=== PATIENT | male | born 1955 ===

== ENCOUNTER 2018-07-05 18:29 | Emergency (ER) | payer SELFPAY ==
--- NOTE | 2018-07-05 20:14 | PDOC ---
History of Present Illness - General Stated Complaint: AMS Time Seen by Provider: 07/05/18 19:49 History Source: Patient Exam Limitations: No Limitations *Physical Exam - Physical Exam General Appearance: Yes: Disheveled, Thin. No: Alcohol on Breath, Intoxicated HEENT: positive: Other (no head/neck trauma noted) Respiratory/Chest: positive: Lungs Clear, Normal Breath Sounds. negative: Respiratory Distress Cardiovascular: positive: Regular Rhythm, Regular Rate. negative: Murmur Gastrointestinal/Abdominal: positive: Soft. 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 Patient denies any complaints and only requests food. Patient smokes 0.5 ppd; denies drug use. Patient states he occasionally drinks alcohol, but can't afford it so does not drink it all the time. Last drink was 3-4 days ago. Denies fever, sob, cp, abd pain, n/v/d. Patient does not appear intoxicated No evidence of trauma on exam No evidence of withdrawal Patient without any complaints Stable for dc 07/05/18 20:11 *DC/Admit/Observation/Transfer Diagnosis at time of Disposition: Homeless - Discharge Dispostion Disposition: HOME Condition at time of disposition: Stable Decision to Admit order: No - Referrals - Patient Instructions - Post Discharge Activity
[2018-07-05 20:17] VITALS: TEMP 97.9; BMI 19.2
--- NOTE | 2018-07-05 20:39 | PDOC ---
*Physical Exam - Vital Signs Last Vital Signs Temp Pulse Resp BP Pulse Ox 97.9 F 79 16 129/78 96 07/05/18 19:25 07/05/18 19:25 07/05/18 19:25 07/05/18 19:25 07/05/18 19:25 Medical Decision Making - Medical Decision Making 07/05/18 20:39 Case reviewed with CODY Jacobs Agree with assessment and plan *DC/Admit/Observation/Transfer Diagnosis at time of Disposition: Homeless - Discharge Dispostion Disposition: HOME Condition at time of disposition: Stable - Referrals - Patient Instructions - Post Discharge Activity
[2018-07-06 05:11] VITALS: BP 132/84; PULSE 74
== END 2018-07-06 05:09 | disposition home or self-care (01) ==
LOC: JER 18:29
DX: Z59.0 Homelessness (principal)
CPT/HCPCS: 99282-25